=== PATIENT | male | born 1990 | race Hispanic/Latino ===

== ENCOUNTER 2019-12-12 20:34 | Emergency (ER) | payer BC, OTHER ==
[2019-12-12 21:31] LABS: Absolute Lymphocytes (CBC) 1.4 K/uL (0.7-4.9); Basophils % 0.8 % (0-1.3); Hematocrit 39.6 % (39.6-49.0); Lymphocytes % 18.2 % (15.3-44.8); MPV 7.6 fL (7.6-11.3); RBC Red Blood Cell Count 4.47 M/uL (4.33-5.43)
[2019-12-12 21:46] LABS: Potassium 3.5 mmol/L (3.5-5.1)
[2019-12-12] MEDS ORDERED: FENTANYL CITR 100 MCG/2 ML ONE (22:29)
[2019-12-12] MEDS ORDERED: NA CHLORIDE 0.9% 1,000 ML ONE (22:29)
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
[2019-12-13 00:35] VITALS: TEMP 99.2
[2019-12-13 00:38] VITALS: BP 127/71; O2SAT 95
--- NOTE | 2019-12-13 10:34 | RAD REPORT ---
EXAM DESCRIPTION: CT - Chest Abdomen Pelvis W Cont - 12/13/2019 8:22 am CLINICAL HISTORY: The patient is 29 years old and is Male; TRAUMA TECHNIQUE: Axial computed tomography images of the chest, abdomen and pelvis with intravenous contra st. Sagittal and coronal reformatted images were created and reviewed. This CT exam was performed using one or more of the following dose reduction techniques: automated exposure control, adjustme nt of the mA and/or kV according to patient size, and/or use of iterative reconstruction technique. DLP: 3304 mGy*cm COMPARISON: None. FINDINGS: CHEST: LUNGS: Dependent subsegmental and bibasilar atelectasis. No focal consolidation. PLEURAL SPACE: Unremarkable. No significant effusion. No pneumothorax. HEART: Unremarkable. No cardiomegaly. No significant pericardial effusion. THYROID: Visualized thyroid is normal. ABDOMEN: LIVER: Unremarkable. No mass. GALLBLADDER AND BILE DUCTS: Unremarkable. No calcified stones. No ductal dilation. PANCREAS: Unremarkable. No ductal dilation. No mass. SPLEEN: Unremarkable. No splenomegaly. ADRENALS: Unremarkable. No mass. KIDNEYS AND URETERS: Asymmetric atrophy of the right kidney. Compensatory hypertrophy of the left kidney. No hydronephrosis. No solid mass. STOMACH AND BOWEL: Unremarkable. No obstruction. No mucosal thickening. PELVIS: APPENDIX: The appendix is seen and is within normal limits. BLADDER: Mild bladder wall thickening. No intraluminal stone. REPRODUCTIVE: Unremarkable as visualized. CHEST, ABDOMEN and PELVIS: INTRAPERITONEAL SPACE: Unremarkable. No significant fluid collection. No free air. BONES/JOINTS: Unremarkable. No acute fracture. No dislocation. SOFT TISSUES: Small fat-containing umbilical hernia. Small bilateral fat-containing inguinal herni a. VASCULATURE: Unremarkable. No aortic aneurysm. LYMPH NODES: Unremarkable. No enlarged lymph nodes. IMPRESSION: No acute intrathoracic, abdominal or pelvic abnormality. Electronically signed by: Ze Nuñez DO 12/12/2019 10:06 PM CDT Due to temporary technical issues with the PACS/Fluency reporting system, reports are being signed by the in house radiologist without review as a courtesy to ensure prompt reporting. The interpreting r adiologist is fully responsible for the content of the report.
--- NOTE | 2019-12-14 08:44 | EKG ---
Test Date: 2019-12-12 Test Time: 21:00:12 Tumbling Machine Operator: RR MEASUREMENT RESULTS: Intervals: Rate: 112 ND: 126 QRSD: 88 QT: 340 QTc: 464 [place]: P: 60 ND: 126 QRS: 32 T: 12 INTERPRETIVE STATEMENTS: Sinus tachycardia Otherwise normal ECG No previous ECG available for comparison Electronically Signed On 12-14-19 08:38:47 CDT by Primo Mustafa
== END 2019-12-12 23:16 | disposition home or self-care (01) ==
LOC: ER 20:34
DX: G89.11 Acute pain due to trauma (principal); S20.219A Contusion of unspecified front wall of thorax, initial encounter; V47.5XXA Car driver injured in collision with fixed or stationary object in traffic accident, initial encounter
CPT/HCPCS: 93005; 85025; 80048; 36415; 86900; 86850; 82565; 86901; 71260; 74177; 96360; 99285; Q9967; J7030; G0390; J3010

== ENCOUNTER 2020-01-27 02:17 | Emergency (ER) | payer OTHER ==
[2020-01-27] MEDS ORDERED: LIDOCAINE 1% W/EPI 1:100,000 MDV 20 ML VIAL ONE (03:19)
[2020-01-27] MEDS ORDERED: CEPHALEXIN 250 MG CAP ONE (03:27)
[2020-01-27] MEDS ORDERED: TETANUS & DIPHTHERIA TOX,ADULT 0.5 ML VIAL ONE (03:27)
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
[2020-01-27 04:50] VITALS: TEMP 98.4
[2020-01-27 04:51] VITALS: O2SAT 99
[2020-01-27 04:54] VITALS: BP 125/62
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
--- NOTE | 2020-01-30 12:19 | RAD REPORT ---
EXAM DESCRIPTION: CT - Head Brain Wo Cont - 01/27/2020 6:48 am CLINICAL HISTORY: HEADACHE TECHNIQUE: Multiple axial CT images of the brain were performed followed by sagittal and coronal rec onstructed images. The CT study is performed according to ALARA (as low as reasonably achievable) or ALARA/IMAGE GENTLY, with automatic adjustment of mA and/or kV according to patient size. Performed on: 01/27/2020 at 3:23 AM Comparisons: None. FINDINGS: Brain: There is no evidence of mass, acute mass effect or midline shift. There are no acut e extra-axial fluid collections. There is no evidence of acute intracranial hemorrhage. The cerebra l sulci and ventricles are normal in size and configuration.. 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 Other possible etiologies include an arachnoid cyst or epidermoid cyst. No additional focal abn ormal areas of increased or decreased attenuation. Paranasal Sinuses and Mastoids: There is mild mucosal thickening of the paranasal sinuses. The mastoi d air cells are clear. Orbits: The orbital contents are grossly unremarkable. Bones: No acute osseous abnormalities are identified. Soft Tissues: No focal soft tissue abnormalities are identified. IMPRESSION: 1. There is no evidence of acute intracranial pathology. 2. 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 Other possible etiologies include an arachnoid cyst or epidermoid cys t. Electronically signed by: Klaudia Dudley DO 01/27/2020 4:57 AM CDT Due to temporary technical issues with the PACS/Fluency reporting system, reports are being signed by the in house radiologist without review as a courtesy to ensure prompt reporting. The interpreting r adiologist is fully responsible for the content of the report.
== END 2020-01-27 04:42 | disposition home or self-care (01) ==
LOC: ER 02:17
PROC: 0JQ10ZZ Repair Face Subcutaneous Tissue and Fascia, Open Approach (ICD-10-PCS; principal; 2020-01-27)
DX: S01.81XA Laceration without foreign body of other part of head, initial encounter (principal); Y04.2XXA Assault by strike against or bumped into by another person, initial encounter; Y93.89 Activity, other specified; Y92.89 Other specified places as the place of occurrence of the external cause; Z23 Encounter for immunization; F17.290 Nicotine dependence, other tobacco product, uncomplicated
CPT/HCPCS: 70450; 70486; 76377; 90471; 90714; 99284